=== PATIENT | female | born 1975 | race Caucasian/White ===

== ENCOUNTER 2017-02-28 06:01 | Observation (INO) | payer OTHER ==
--- NOTE | 2017-02-09 19:24 | GHP ---
[f rep st] PREOP HISTORY AND PHYSICAL DATE OF ADMISSION: 02/28/2017 SCHEDULED DATE OF SURGERY: February 28, 2017 at 7:15 a.m. PROCEDURE TO BE PERFORMED: Total laparoscopic hysterectomy, bilateral salpingectomy. PREOPERATIVE DIAGNOSIS: Menometrorrhagia and submucosal fibroid. Surgeon will be Dr. Sabine West. HISTORY OF PRESENT ILLNESS: The patient is a 41-year-old 0 who has had a longstanding histo ry of heavy and painful menstrual cycles all of her life. She has been on Azurette control fo r 6 or 7 years and had been managing her symptoms well. Approximately a year ago the patient began having dysfunctional bleeding, spotting during different times of her cycle and cycles became heavie r with flooding accidents, sometimes lasting up to 12 days. Her dysmenorrhea has become significant 7/10 on a pain scale for multiple days of her period and requiring pain medicine. The patient had tried to use a Mirena IUD in the past, but the provider was unable to insert it afte r several attempts. We performed an ultrasound and patient has a large submucosal fibroid that is 2 .92 x 2.34 x 2.60 cm with flow. Ovaries are normal. The rest of her uterine anatomy is normal. We discussed treatment options for the submucosal fibroid and her long-standing menometrorrhagia and dysmenorrhea. I offered her surgical management with minimally invasive surgery with a hysteroscop y, D and C, and myomectomy versus a minimally invasive hysterectomy approach, total laparoscopic hys terectomy, bilateral salpingectomy. The patient has not had children but does not wish to have chil dren and is 100% sure about that choice. She has been on control pills and they are no longer working well and she wishes to have definitive treatment with a hysterectomy. She is afraid if she has a myomectomy the fibroids will recur. So she was consented for a total laparoscopic hysterecto my and bilateral salpingectomy. PAST MEDICAL HISTORY: Only significant for anemia and anxiety. Her anemia has been caused by her m enometrorrhagia multiple times in her life. PAST SURGICAL HISTORY: She had a tonsillectomy and a wisdom teeth extraction. PAST OBSTETRICAL HISTORY: She has no past obstetrical history. She has never been . PAST GYNECOLOGICAL HISTORY: Significant for STDs. She has a history of chlamydia, genital herpes a nd genital warts. Her last Pap smear was in May of 2016 and was normal. She had 1 abnormal Pap and she had a biopsy that was negative and repeat Paps have all been negative. She did not receive the Gardasil vaccine. She is currently not , but single in a monogamous relationship. ALLERGIES: She has allergies to sulfa and Dilantin that cause a rash. CURRENT MEDICATION: Her only current medications include Azurette, her control pills. SOCIAL HISTORY: She is single and in a monogamous relationship. She works as an job placement officer. S he denies tobacco. She admits to alcohol 3 times a week. No marijuana. No drug use. She walks [place] for exercise. FAMILY HISTORY: Her dad has hypertension. Uncle was an alcoholic and she has a cousin with type 2 diabetes. No other significant family history. REVIEW OF SYSTEMS: Significant for fatigue, occasional shortness of breath, dyspareunia, significan t dysmenorrhea and menometrorrhagia. Everything else on her review of systems is negative. OBJECTIVE: VITAL SIGNS: Blood pressure is 118/76, weight is 203. GENERAL: She is a well-develope d, well-nourished female, in no acute distress. LUNGS: Clear to auscultation bilaterally. HEART: Regular rate and rhythm. No murmur. ABDOMEN: Soft, nontender, nondistended. Normal bowel sounds . Pelvic exam normal. External genitalia: Normal nulliparous cervix. Uterus is anteverted, antefl exed, small. No obvious abnormalities. No obvious masses. Ultrasound results are as above. ASSESSMENT/PLAN: A 41-year-old 0, with menometrorrhagia, dysmenorrhea and a large submucosa l fibroid for a total laparoscopic hysterectomy and bilateral salpingectomy. The patient was consen rivka for the procedure today. She understands the risks and benefits. The risks including bleeding, infection, damage to internal organs, ovaries, bowel, bladder, nerves, blood vessels, ureters, need for open procedure, need for additional procedures, and incomplete treatment of all of her pain. S he understood these risks and benefits and agreed to consent. /[id number]/MODL
[~2017-02-28 06:01] MED LIST: ceFAZolin 2 GM/DEXTROSE 100 ML IV ONE
[2017-02-28] MEDS ORDERED: LIDOCAINE 1% 2 ML INJ ONE (06:10)
[2017-02-28] MEDS ORDERED: LR 1,000 ML IV ONE (06:25)
[2017-02-28] MEDS ORDERED: LIDOCAINE 1% 2 ML INJ ID PRN (06:25)
[2017-02-28] MEDS ORDERED: BUPIVACAINE 0.5% 30 ML SDV ONE (07:07)
[2017-02-28] MEDS ORDERED: MIDAZOLAM 2 MG/2 ML VIAL IVP ONE (07:08)
[2017-02-28] MEDS ORDERED: ONDANSETRON 4 MG/2 ML VIAL ONE (07:12)
[2017-02-28] MEDS ORDERED: MIDAZOLAM 2 MG/2 ML VIAL ONE (07:12)
[2017-02-28] MEDS ORDERED: KETOROLAC 30 MG/1 ML SDV ONE (07:12)
[2017-02-28] MEDS ORDERED: ROCURONIUM 50 MG/5 ML VIAL ONE ×2 (07:12→08:25)
[2017-02-28] MEDS ORDERED: DEXAMETHASONE 4 MG/ML VIAL ONE (07:12)
[2017-02-28] MEDS ORDERED: fentaNYL 100 MCG/2 ML INJ ONE ×2 (07:13→10:23)
[2017-02-28] MEDS ORDERED: LIDOCAINE 2% 5 ML SDV ONE (07:13)
[2017-02-28] MEDS ORDERED: PROPOFOL 200 MG/20 ML VIAL ONE (07:13)
--- NOTE | 2017-02-28 07:16 | PDANEPAE ---
ANE History of Present Illness lap - hyst ANE Past Medical History - Cardiovascular History Hx Hypertension: No Hx Arrhythmias: No Hx Chest Pain: No Hx Coronary Artery / Peripheral Vascular Disease: No Hx CHF / Valvular Disease: No Hx Palpitations: No - Pulmonary History Hx COPD: No Hx Asthma/Reactive Airway Disease: No Hx Recent Upper Respiratory Infection: No Hx Oxygen in Use at Home: No Hx Sleep Apnea: No Sleep Apnea Screening Result - Last Documented: Negative - Neurologic History Hx Cerebrovascular Accident: No Hx Seizures: No Hx Dementia: No - Endocrine History Hx Diabetes: No - Renal History Hx Renal Disorders: No - Liver History Hx Hepatic Disorders: No - Neurological & Psychiatric Hx Hx Neurological and Psychiatric Disorders: No Neurological / Psychiatric History Comment: ANXIETY - Cancer History Hx Cancer: No - Congenital Disorder History Hx Congenital Disorders: No - GI History Hx Gastrointestinal Disorders: Yes Gastrointestinal History Comment: HEARTBURN USES OTC - Other Health History Other Health History: LARGE SUBMUCOSAL FIBROID. MENORRHAGIA. INTERMITTENT ANEMIA RELATED TO INCREASED BLEEDING - Chronic Pain History Chronic Pain: No - Surgical History Prior Surgeries: TONSILLECTOMY 2004. LT HAND GANGLION CYST ANE Review of Systems - Exercise capacity METS (RN): 4 METS ANE Patient History - Allergies Allergies/Adverse Reactions: phenytoin [From Dilantin] Allergy (Intermediate, Verified 02/09/17 18:37) strawberry Allergy (Verified 02/16/17 11:21) Sulfa (Sulfonamide Antibiotics) Allergy (Verified 02/09/17 18:38) - Home Medications Home Medications: Advil PRN 02/16/17 [Last Taken 1 Week Ago] Azurette 28 Day Tablet DAILY AT 6AM 02/16/17 [Last Taken 02/27/17 06:00] Hydroxyzine HCl 02/16/17 [Last Taken 02/27/17 20:00] - NPO status NPO Since - Liquids (Date): 02/27/17 NPO Since - Liquids (Time): 20:00 NPO Since - Solids (Date): 02/27/17 NPO Since - Solids (Time): 19:00 - Anes Hx Anes Hx: no prior problems - Smoking Hx Smoking Status: Former smoker ANE Labs/Vital Signs - Vital Signs Blood Pressure: 145/98 Heart Rate: 99 Respiratory Rate: 16 O2 Sat (%): 96 Height: 160.02 cm Weight: 90.718 kg ANE Physical Exam - Airway Mallampati Score: Class 2 Mouth exam: normal dental/mouth exam - Pulmonary Pulmonary: no respiratory distress - Cardiovascular Cardiovascular: regular rate and rhythym
[2017-02-28] MEDS ORDERED: ceFAZolin 2 GM/DEXTROSE 100 ML IV ONE (07:20)
--- NOTE | 2017-02-28 07:21 | PDHPUP ---
History & Physical Update H&P update statement: This history and physical update is based on an assessment of the patient which was completed after admission or registration (within 24 hours), but prior to the surgery/procedure. H&P update: H&P reviewed & patient examined, no change in patient's condition since H&P completed
[2017-02-28] MEDS ORDERED: NALOXONE HCL 0.4 MG/ML INJ IVP PRN ×2 (08:32→09:49)
[2017-02-28] MEDS ORDERED: ONDANSETRON 4 MG/2 ML VIAL IVP PRN ×2 (08:32→09:26)
[2017-02-28] MEDS ORDERED: ALBUTEROL 3 ML DEYVIAL IH PRN (08:32)
[2017-02-28] MEDS ORDERED: LR 500 ML IV PRN (08:32)
[2017-02-28] MEDS ORDERED: HYDROmorphONE/DILAUDID 1 MG/ML SYR IVP PRN (08:32)
[2017-02-28] MEDS ORDERED: fentaNYL 100 MCG/2 ML INJ IVP PRN (08:32)
[2017-02-28] MEDS ORDERED: MEPERIDINE 25 MG/ML SYR IVP PRN (08:32)
[2017-02-28] MEDS ORDERED: SUGAMMADEX SODIUM 200 MG/2 ML VIAL IVP ONE (09:05)
[2017-02-28] MEDS ORDERED: HYDROmorphONE/DILAUDID 2 MG/ML INJ ONE (09:14)
--- NOTE | 2017-02-28 09:28 | POSTANESTH ---
Post Anesthetic Evaluation Cardiovascular Status: Normal, Stable Respiratory Status: Normal, Stable Level of Consciousness/Mental Status: Can Participate in Eval Pain Control: Adequate, Prn Tx Ordered Nausea/Vomiting Control: Adequate, Prn Tx Ordered Complications Possibly Related to Anesthesia: None Noted
[2017-02-28] MEDS ORDERED: LR 1,000 ML IV SCH (09:30)
--- NOTE | 2017-02-28 09:32 | POSTOPPROG ---
Post Op Note Date of Operation: 02/28/17 Surgeon: Sabine West Grocery Worker: juan rangel Anesthesiologist: Garrett Cyr Anesthesia: GET(General Endotracheal) Pre-op Diagnosis: menorrhagia and submucosal fibroid Post-op Diagnosis: same Indication: menorrhagia and submucosal fibroid Procedure: Total Laparaoscopic Hysterectomy and bilateral salpingectomy Findings: normal uterus tubes and ovaries Inf/Abcess present in the surg proc area at time of surgery?: No Depth: Organ Space EBL: 100-500 Total fluids administered: 500 Specimen(s): uterus and bilateral fallopian tubes
[2017-02-28] MEDS ORDERED: MAGNESIUM HYDROXIDE 30 ML UDCUP PO PRN (09:49)
[2017-02-28] MEDS ORDERED: HYDROmorphONE/DILAUDID 6 MG/30 ML PCA IV PRN (09:49)
[2017-02-28] MEDS ORDERED: POLYETHYLENE GLYCOL 3350 17 GM PKT PO PRN (09:49)
[2017-02-28] MEDS ORDERED: LACTULOSE 20 GM/30 ML UDCUP PO PRN (09:49)
[2017-02-28] MEDS ORDERED: BISACODYL 10 MG SUPP PR PRN (09:49)
[2017-02-28] MEDS ORDERED: HYDROmorphONE/DILAUDID 1 MG/ML SYR ONE (09:50)
--- NOTE | 2017-02-28 10:35 | GOP ---
[f rep st] OPERATIVE REPORT DATE OF OPERATION: 02/28/2017 SURGEON: Sabine West MD MACHINE PRESSER: Theresa Myles D.O. ANESTHESIA: General anesthesia. ANESTHESIOLOGIST: Dr. Garrett Cyr. PREOPERATIVE DIAGNOSIS: 1. Menometrorrhagia. 2. Submucosal fibroid. POSTOPERATIVE DIAGNOSIS: 1. Menometrorrhagia. 2. Submucosal fibroid. PROCEDURE PERFORMED: 1. Total laparoscopic hysterectomy. 2. Bilateral salpingectomy. FINDINGS: SPECIMENS: The uterus with cervix and bilateral fallopian tubes. ESTIMATED BLOOD LOSS: For the procedure was 150 mL. INDICATIONS: The patient is a 41-year-old 0 with a longstanding history of heavy and painfu l menstrual cycles all of her life. She has been on control for the last 6 or 7 years and adrián t had been managing her symptoms. Approximately a year ago, she began having dysfunctional bleeding , spotting during different times of her cycle, cycles becoming very heavy with flooding accidents, sometimes lasting up to 12 days. Her dysmenorrhea also has become significant, 7/10 on the pain sca le, requiring multiple days of pain medicine and making it very difficult to work. The patient trie d to use a Mirena IUD in the past, but it was unable to be inserted with several attempts. We did a n ultrasound that showed a large submucosal pry void 2.9 x 2.3 x 2.6 cm with flow. The rest of the pelvic anatomy was normal. We discussed treatment options, including continued medical management versus a hysteroscopy, D and C, myomectomy, versus a total laparoscopic hysterectomy. The patient wanted definitive management, did not want to have a chance of this coming back and does not want children, so she has decided to have definitive management with a hysterectomy. She was consented for the procedure. She understood the risks and benefits, the risks including ble eding, infection, damage to internal organs, uterus, tubes, ovaries, bowel, bladder, nerves, blood v essels, ureters, risk of needing an open procedure, risk of needing additional procedures. She unde rstood these risks and benefits, and agreed to proceed. DESCRIPTION OF PROCEDURE: The patient was taken to the operating room where she was placed under ge neral anesthesia without difficulty. She was prepped and draped in the dorsal lithotomy position an d a Stallings catheter was placed in her bladder. After a WHO time-out was performed, an open-sided speculum was placed in the vagina and a single-too th tenaculum was used to grasp the anterior lip of the cervix. The uterus sounded to 8 cm. The med ium cervical cup with the 8 cm uterine sound was then inserted on the CLIFF handle. The cervix was d ilated with progressive dilators to a #7. The CLIFF was inserted through the uterus, seated at the f undus, the tenaculum and the speculum were removed and the manipulator was functional. Attention was then turned to the abdominal portion of the procedure. After injection with Marcaine, a 5 mm skin incision was made in an infraumbilical skin fold and the atraumatic 5 mm trocar was florin marv under direct observation through this skin incision, and pneumoperitoneum was created with carbo n dioxide gas. The patient was placed in steep Trendelenburg and, after injection of Marcaine, a 5 mm skin incision was placed in the right lower quadrant and a trocar was placed under direct visuali zation. A 10 mm port was placed on the left. Visualization of the pelvis revealed a uterus that wa s grossly within normal limits, slightly distended. Normal tubes and ovaries. Normal cul-de-sac. Normal liver as well as normal appendix. The uterus was manipulated over to the right side of the patient. The right fallopian tube was gras ped with an atraumatic grasper and the LigaSure was used to remove the fallopian tube along the meso salpinx at the level of the cornual region of the uterus, and the tube was removed through the 10 mm port. The LigaSure was then used to dissect the utero-ovarian ligament and along the cardinal liga ments. The broad ligament was then divided in the anterior posterior leaf. Dissection was carried down to create the bladder flap. The bladder flap was created with direct visualization over the me erine manipulator, which was clearly visualized. The uterine vessels were then skeletonized, cauter ized and cut with the LigaSure, and good hemostasis was obtained. An identical procedure was perfor med on the right side, with dissection of the fallopian tube with the LigaSure first, and that was r emoved directly. Then the LigaSure was used to divide the utero-ovarian ligament and the cardinal l igaments, and extend the bladder flap throughout the entire anterior aspect of the uterus. The uter ine vessels were identified, cauterized and cut until the manipulator was visualized circumferential ly. The balloon was then inserted in the vaginal cuff and the colpotomy was performed with the hook aspe ct of the ligature on cautery. The incision was made over the vaginal cup anterior to posterior, wi th good hemostasis obtained and good visualization around the entire pelvis. The uterus was then re moved through the vagina without difficulty. There was an area of bleeding on the vaginal cuff that was grasped with the LigaSure and cauterized. The cuff was then closed with the 0 Vicryl V-Loc suture from right to left, anterior to posterior, with care to incorporate the anterior and posterior peritoneum as well as the entire thickness of t he vagina, and good visual visualization was obtained. The needle was then removed through the 10 m m port. The pelvis was copiously irrigated with warm normal saline and good hemostasis was obtained at the cuff as well as the pedicles. The ovaries were normal. The ureters were seen to be perista lsing bilaterally. The appendix and the upper abdomen were again visualized, and all anatomy was no rmal. The 10 mm trocar port was then removed and the fascial closure device was used to close that fascial port with 0 Vicryl. The rest of the trocars were removed. The pneumoperitoneum was allowed to escape. The skin was closed with 4-0 Monocryl. One last visualization of the vaginal cuff reve aled good hemostasis. No bleeding. No debris. The patient tolerated the procedure well. Sponge, lap, needle, and instrument counts were correct x2. The patient went to the recovery room in good c ondition. URINE OUTPUT: 500 mL. FLUIDS REPLACED: 500 mL. /[id number]/MODL
[2017-02-28] MEDS: KETOROLAC 30 MG/1 ML SDV IVP PRN ×2 (12:31→19:37)
[2017-02-28] MEDS: HYDROCODONE/APAP 5/325 TAB PO PRN (16:46)
--- NOTE | 2017-02-28 18:27 | SOAPPROG ---
SOAP Progress Note Assessment/Plan: Assessment: 41 y/o POD #0 s/p TLH BS doing well. Plan: Advance diet and give po pain meds. Ambulate and d/c balbuena in am. 02/28/17 18:25 Subjective: Pt is doing well. She has min pain controlled with Toradol and 1 [place]. She is tolerating sm amounts of food without nausea and vomiting. No light headness or dizziness. Objective: Vital Signs Temp Pulse Resp BP Pulse Ox 37.0 C 75 16 123/80 H 96 02/28/17 14:15 02/28/17 14:15 02/28/17 14:15 02/28/17 14:15 02/28/17 14:15 02/27/17 02/28/17 03/01/17 05:59 05:59 05:59 Intake Total 600 Output Total 600 Balance 0 - Pending Discharge Pending Discharge Within 24 Hours: Yes Pending Discharge Date: 03/01/17 Pending Discharge Time: 11:00 Physical Exam - Physical Exam General Appearance: WD/WN, alert, no apparent distress Neck: non-tender, full range of motion, supple Respiratory: chest non-tender, lungs clear, normal breath sounds Cardiac/Chest: regular rate, rhythm Abdomen: normal bowel sounds, other (incision c/d/i) Extremities: swelling (no), Sahil's sign (neg) ICD10 Worksheet Patient Problems: Problems Problem Status Onset S/P laparoscopic hysterectomy Acute - ICD10 Problem Qualifiers (1) S/P laparoscopic hysterectomy
[2017-02-28] MEDS: SENNOSIDES/DOCUSATE SODIUM TAB PO SCH (19:42)
[2017-03-01] MEDS: KETOROLAC 30 MG/1 ML SDV IVP PRN ×2 (01:05→08:06)
[2017-03-01 06:14] LABS: HEMATOCRIT 33.8 % (38.0-47.0); HEMOGLOBIN 10.8 g/dL (12.6-16.3)
[2017-03-01] MEDS: HYDROCODONE/APAP 5/325 TAB PO PRN (08:26)
[2017-03-01] MEDS ORDERED: SIMETHICONE 80 MG TAB CHEW PO SCH (09:00)
--- NOTE | 2017-03-01 09:04 | SOAPPROG ---
SOAP Progress Note Assessment/Plan: Assessment: 41 y/o POD #1 s/p TLH BS doing well. Plan: Ambulate today, await voiding, Po pain meds and d/c home later today to f/up @ [facility] 2 and 4 weeks. 02/28/17 18:25 03/01/17 09:05 Subjective: Pt is doing well this am. She rested well overnight. She is having some sharp LLQ pain "feels like gas pain." She is ambulating well but hasn't voided yet. Her balbuena was d/c early this am. She is tolerating reg diet and po pain meds are controlling her pain. She feels ready to d/c home later today. Objective: Vital Signs Temp Pulse Resp BP Pulse Ox 37.0 C 65 18 124/73 H 99 03/01/17 05:45 03/01/17 05:45 03/01/17 05:45 03/01/17 05:45 03/01/17 05:45 Laboratory Results 03/01/17 06:05 02/28/17 03/01/17 03/02/17 05:59 05:59 05:59 Intake Total 2700 Output Total 2400 Balance 300 - Pending Discharge Pending Discharge Within 24 Hours: Yes Pending Discharge Date: 03/02/17 Pending Discharge Time: 11:00 Physical Exam - Physical Exam General Appearance: WD/WN, alert, no apparent distress Neck: non-tender, full range of motion, supple Respiratory: chest non-tender, lungs clear, normal breath sounds Cardiac/Chest: regular rate, rhythm Abdomen: normal bowel sounds, non-tender, other (incisions c/d/i) Extremities: swelling (no), Sahil's sign (neg) ICD10 Worksheet Patient Problems: Problems Problem Status Onset S/P laparoscopic hysterectomy Acute - ICD10 Problem Qualifiers (1) S/P laparoscopic hysterectomy
[2017-03-01] MEDS ORDERED: IBUPROFEN 600 MG TAB PO SCH (09:28)
[2017-03-01 09:31] VITALS: BP 123/86; PULSE 83; RESP 16; TEMP 97.8; O2SAT 96
[2017-03-01] MEDS: SENNOSIDES/DOCUSATE SODIUM TAB PO SCH ×2 (11:06→11:17)
== END 2017-03-01 11:29 | disposition home or self-care (01) ==
LOC: FSGY 06:01 → F3E 09:34 → FOB 11:19
PROVIDERS: ADMIT Obstetrics & Gynecology; ATTEND Obstetrics & Gynecology
PROC: 0UT7FZZ Resection of Bilateral Fallopian Tubes, Via Natural or Artificial Opening With Percutaneous Endoscopic Assistance (ICD-10-PCS; principal; 2017-02-28 07:15)
PROC: 0UT9FZZ Resection of Uterus, Via Natural or Artificial Opening With Percutaneous Endoscopic Assistance (ICD-10-PCS; principal; 2017-02-28 07:15)
DX: D25.9 Leiomyoma of uterus, unspecified (principal); N92.0 Excessive and frequent menstruation with regular cycle; F41.9 Anxiety disorder, unspecified; Z87.891 Personal history of nicotine dependence
CPT/HCPCS: 58571; G0378; J0690; J1100; J1170; J1885; J2250; J2405; J2704; J3010

== ENCOUNTER → 2017-11-16 | Outpatient (CLI) | payer OTHER | LOC: FIMAGING 08:41 | PROVIDERS: ATTEND Obstetrics & Gynecology | DX: Z12.31 Encounter for screening mammogram for malignant neoplasm of breast (principal) ==